=== PATIENT | male | born 1990 | race Caucasian/White ===

== ENCOUNTER 2021-08-04 17:20 | Emergency (ER) | payer OTHER ==
[~2021-08-04] VITALS: Ht 180.3 cm; Wt 74.8 kg
[2021-08-04] MEDS ORDERED: CASIRIVIMAB/IMDEVIMAB 10 ML in SODIUM CHLORIDE 0.9% 100 ML IV ONE (18:15)
[2021-08-04] MEDS ORDERED: TESSALON PERLE100 MG PO (18:25)
[2021-08-04] MEDS ORDERED: MUCINEX DM ER1 EACH PO (18:25)
== END 2021-08-04 19:10 | disposition home or self-care (01) ==
LOC: ER 17:42
DX: U07.1 COVID-19 (principal); R05.9 Cough, unspecified; R00.0 Tachycardia, unspecified; R50.9 Fever, unspecified; J45.909 Unspecified asthma, uncomplicated; R53.83 Other fatigue
CPT/HCPCS: 99282; J7050